=== PATIENT | female | born 1990 | race Caucasian/White ===

== ENCOUNTER 2021-08-28 10:58 | Inpatient (IN) | payer OTHER ==
[2021-09-01] MEDS ORDERED: ePHEDrine Sulfate 50 MG/10 ML VIAL ONE (07:00)
[2021-09-01 20:15] VITALS: BMI 33.1
[2021-09-01] MEDS ORDERED: Butorphanol Tartrate 1 MG/ML VIAL SLOW IVP PRN (20:17)
[2021-09-01] MEDS ORDERED: Ondansetron PF 4 MG/2 ML Vial IVP PRN ×2 (20:17→22:48)
[2021-09-01] MEDS ORDERED: Lidocaine 1% (PF) 30 ML VIAL SC PRN ×2 (20:17)
[2021-09-01] MEDS ORDERED: Promethazine HCl 25 MG/ML VIAL IM PRN ×2 (20:17→22:48)
[2021-09-01] MEDS ORDERED: Ibuprofen 800 MG TAB PO PRN (20:17)
[2021-09-01] MEDS ORDERED: hydrALAZINE 20 MG/ML VIAL SLOW IVP PRN (20:17)
[2021-09-01] MEDS ORDERED: HYDROcodone/Acetaminophen 5/325 mg Tablet PO PRN ×2 (20:17)
[2021-09-01] MEDS ORDERED: Lactated Ringer's 1,000 ML IV SCH (20:30)
[2021-09-01] MEDS ORDERED: NS w/ Oxytocin 30 units 500 ML IVPB SCH (20:30)
[2021-09-01] MEDS ORDERED: NS w/ Oxytocin 30 units 500 ML IV SCH ×3 (20:30)
[2021-09-01 20:48] LABS: Hemoglobin 12.1 g/dL (12.0-15.5); Mean Corpuscular HGB CONC 33.9 g/dL (32.0-36.0); Mean Corpuscular Hemoglobin 33.2 pg (27.0-33.0); Mean Corpuscular Volume 97.8 fl (81.6-98.3); Mean Platelet Volume 10.5 fl (7.4-10.4); Platelet Count 249 10x3/uL (150-450); RBC Distribution Width 13.2 % (11.5-14.5); Red Blood Cell (RBC) Count 3.65 10x6/uL (3.90-5.03); White Blood Cell (WBC) Count 12.7 10x3/uL (3.5-10.5)
[2021-09-01 21:07] LABS: Hep B Surf Ag Non-Reactive S/CO (NonReactive); Syphilis Antibody Nonreactive (Nonreactive); Syphilis Antibody Index 0.03 S/CO (<1.00 Non-Reactive)
[2021-09-01 21:12] LABS: HBSAg Index 0.18 S/CO (0-0.99)
[2021-09-01] MEDS ORDERED: Fentanyl 2 mcg/Bup 0.1% Cadd 0 ML ONE (22:08)
[2021-09-01] MEDS ORDERED: Fentanyl 2 mcg/Bup 0.1% Cadd 100 ML ONE (22:09)
[2021-09-01] MEDS: Fentanyl 2 mcg/Bupivacaine 0.1% Cassette 100 ML EPIDURAL SCH (22:37)
[2021-09-01] MEDS ORDERED: Naloxone HCl 0.4 mg/ml Vial IVP PRN ×2 (22:48)
[2021-09-01] MEDS ORDERED: diphenhydrAMINE 50 MG/ML VIAL IVP PRN (22:48)
[2021-09-01] MEDS ORDERED: Hydrocerin (Eucerin) Cream 120 gm Jar TOP PRN (22:48)
[2021-09-01] MEDS ORDERED: Lactated Ringer's 500 ML IV PRN (22:48)
[2021-09-01] MEDS ORDERED: Acetaminophen 325 MG TAB PO PRN (22:48)
[2021-09-01] MEDS ORDERED: ePHEDrine Sulfate 50 MG/10 ML VIAL SLOW IVP PRN (22:48)
[2021-09-01] MEDS ORDERED: Communication Order-Pharmacy FS SCH (23:00)
[2021-09-02] MEDS ORDERED: Fentanyl 2 mcg/Bup 0.1% Cadd 100 ML ONE (06:03)
[2021-09-02] MEDS: Fentanyl 2 mcg/Bupivacaine 0.1% Cassette 100 ML EPIDURAL SCH (06:16)
[2021-09-02] MEDS ORDERED: hydrALAZINE 20 MG/ML VIAL SLOW IVP PRN (10:59)
[2021-09-02] MEDS ORDERED: Bisacodyl 10 MG SUPP PR PRN (10:59)
[2021-09-02] MEDS ORDERED: Ondansetron PF 4 MG/2 ML Vial IVP PRN (10:59)
[2021-09-02] MEDS ORDERED: Lanolin Ointment 7 GM TUBE TOP PRN (10:59)
[2021-09-02] MEDS ORDERED: HYDROcodone/Acetaminophen 5/325 mg Tablet PO PRN ×2 (10:59)
[2021-09-02] MEDS ORDERED: diphenhydrAMINE 25 MG CAP PO PRN (10:59)
[2021-09-02] MEDS ORDERED: Milk Of Magnesia 30 ML UDCUP PO PRN (10:59)
[2021-09-02] MEDS ORDERED: Preparation H Ointment 28 GM TUBE PR PRN (10:59)
[2021-09-02] MEDS ORDERED: Boostrix 0.5 ML (Tdap) VIAL IM ONE (10:59)
[2021-09-02] MEDS ORDERED: Benzocaine-Menthol 82.5 ML CAN TOP PRN (10:59)
[2021-09-02] MEDS ORDERED: Docusate Calcium (SURFAK) 240 MG CAP PO SCH (11:15)
[2021-09-02] MEDS ORDERED: Prenatal Vitamin 1 TAB PO SCH (11:15)
[2021-09-02] MEDS: Ferrous Sulfate 325 MG TAB PO SCH (16:40)
[2021-09-02] MEDS: Ibuprofen 800 MG TAB PO SCH ×2 (16:56→23:23)
[2021-09-02 18:51] LABS: HIV (1/2) Antibody/Antigen Non-Reactive (NonReactive); HIV 1/2 INDEX 0.09 S/CO (<1.00)
[2021-09-02] MEDS: Docusate Calcium (SURFAK) 240 MG CAP PO SCH (21:37)
[2021-09-03] MEDS: Ibuprofen 800 MG TAB PO SCH ×2 (06:18→14:42)
[2021-09-03] MEDS: Ferrous Sulfate 325 MG TAB PO SCH (07:29)
[2021-09-03 08:05] VITALS: BP 125/76; TEMP 98.8
[2021-09-03] MEDS: Docusate Calcium (SURFAK) 240 MG CAP PO SCH (08:41)
[2021-09-03] MEDS ORDERED: Prenatal Vitamin 1 TAB PO SCH (09:00)
== END 2021-09-03 15:20 | disposition home or self-care (01) | DRG 807 ==
LOC: CSHLD 09-01 18:48 → CSHPP 09-02 10:41
PROVIDERS: ADMIT Obstetrics & Gynecology; ATTEND Obstetrics & Gynecology
PROC: 10E0XZZ Delivery of Products of Conception, External Approach (ICD-10-PCS; principal; 2021-09-01)
PROC: 0HQ9XZZ Repair Perineum Skin, External Approach (ICD-10-PCS; 2021-09-01)
DX: O70.0 First degree perineal laceration during delivery (principal); Z37.0 Single live birth; Z3A.40 40 weeks gestation of pregnancy; Z20.822 Contact with and (suspected) exposure to COVID-19
CPT/HCPCS: 36415; 51702; 85027; 86780; 86850; 86900; 86901; 87340; 87389; J2590

== ENCOUNTER 2021-08-28 14:38 | Outpatient (CLI) | payer OTHER ==
[2021-08-29 00:10] LABS: SARS-CoV-2 PCR by NAA Not Detected (NotDetected)
== END 2021-08-28 14:39 | disposition home or self-care (01) ==
LOC: CSHLAB 14:38
PROVIDERS: ATTEND Obstetrics & Gynecology
DX: Z01.812 Encounter for preprocedural laboratory examination (principal); Z20.822 Contact with and (suspected) exposure to COVID-19
CPT/HCPCS: U0003; U0005